=== PATIENT | female | born 1975 | race Caucasian/White ===

== ENCOUNTER 2018-01-15 21:47 | Emergency (ER) | payer OTHER ==
[~2018-01-15] VITALS: Ht 175.3 cm; Wt 65.9 kg
[2018-01-15 21:48] VITALS: BP 121/78; PULSE 85; RESP 16; TEMP 99; O2SAT 99
[2018-01-15 21:55] VITALS: BP 112/64; PULSE 68; RESP 18; TEMP 98.2; O2SAT 98
[2018-01-15] MEDS ORDERED: SODIUM CHLORIDE 0.9% FLUSH 10 ML FLUSH IVF PRN (22:15)
[2018-01-15] MEDS ORDERED: ONDANSETRON HCL 4 MG/2 ML VIAL IVP ONE (22:15)
[2018-01-15] MEDS ORDERED: MORPHINE SULFATE 4 MG/ML INJ IV PUSH ONE (22:15)
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
[2018-01-16] MEDS ORDERED: NAPR375T4 PO (00:18)
[2018-01-16] MEDS ORDERED: CYCL10TA PO (00:18)
--- NOTE | 2018-01-16 00:19 | PD ---
Physical Exam Narrative GENERAL: SKIN: Warm and dry. HEAD: Atraumatic. Normocephalic. EYES: Pupils equal and round. No scleral icterus. No injection or drainage. ENT: No nasal bleeding or discharge. Mucous membranes pink and moist. NECK: Trachea midline. No JVD. CARDIOVASCULAR: Regular rate and rhythm. RESPIRATORY: No accessory muscle use. Clear to auscultation. Breath sounds equal bilaterally. GASTROINTESTINAL: Abdomen soft, non-tender, nondistended. MUSCULOSKELETAL: Extremities without clubbing, cyanosis, or edema. No obvious deformities. NEUROLOGICAL: Awake and alert. No obvious cranial nerve deficits. Motor grossly within normal limits. Five out of 5 muscle strength in the arms and legs. Normal speech. PSYCHIATRIC: Appropriate mood and affect; insight and judgment normal. Data Data Last Documented VS Vital Signs Date Time Temp Pulse Resp B/P (MAP) Pulse Ox O2 Delivery O2 Flow Rate FiO2 01/15/18 21:55 98.2 68 18 112/64 (80) 98 01/15/18 21:48 Room Air Orders Orders Iv Access Insert/Monitor (01/15/18 22:09) Ecg Monitoring (01/15/18 22:09) Ice/Cold Pack (01/15/18 22:09) Oximetry (01/15/18 22:09) Morphine Inj (Morphine Inj) (01/15/18 22:15) Ondansetron Inj (Zofran Inj) (01/15/18 22:15) Sodium Chloride 0.9% Flush (Ns Flush) (01/15/18 22:15) Ct Cerv Spine W/O Contrast (01/15/18 22:09) Ct Lumb Spine W/O Contrast (01/15/18 22:09) Shoulder, Complete (>2vws) (01/15/18 22:09) [facility] Medical Record Reviewed: Yes Supervised Visit with DARRIN: Yes Narrative Course CT C-spine shows mild disc bulging at C5-6 and 7. Lumbar C-spine also shows slight bulging disc at multiple levels but without any major compromise of the nerve roots spine or thecal sac. Shoulder x-ray also did not show any evidence of fracture or dislocation. Diagnosis Primary Impression: Neck and back disc SLIGHT PROTRUSIONS Referrals: Andriy Paige MD FOR FURTHER EVALUATION AND CARE Patient Instructions: Cervical Disc Herniation (ED), General Instructions Scripts Naproxen DR (Naproxen EC) 375 Mg Tabdr 375 MG PO BID, #20 TAB 0 Refills Prov: Donavon Stapleton MD 01/16/18 Cyclobenzaprine (Flexeril) 10 Mg Tab 10 MG PO TID for Muscle Spasm, #15 TAB 0 Refills Prov: Donavon Stapleton MD 01/16/18 Disposition: 01 DISCHARGE HOME Condition: Stable Donavon Stapleton MD Jan 16, 2018 00:19
== END 2018-01-16 00:56 | disposition home or self-care (01) ==
LOC: NEPE 21:47
DX: M54.5 Low back pain (principal); M50.222 Other cervical disc displacement at C5-C6 level; M50.223 Other cervical disc displacement at C6-C7 level; M51.26 Other intervertebral disc displacement, lumbar region; M25.511 Pain in right shoulder; V49.59XA Passenger injured in collision with other motor vehicles in traffic accident, initial encounter; Y92.410 Unspecified street and highway as the place of occurrence of the external cause
CPT/HCPCS: 72125; 72131; 73030; 96374; 96375; 99285; J2270; J2405